=== PATIENT | male | born 1950 | race Caucasian/White ===

== ENCOUNTER 2017-08-23 01:12 | Emergency (ER) | payer OTHER, MEDICARE ==
[~2017-08-23] VITALS: Ht 177.8 cm; Wt 99.8 kg
[~2017-08-23 01:12] MED LIST: AMLODIPINE BESY PO; COREG 25 MG TAB25 MG PO; DIOVAN HCT 25 M1 TA1 PO; ELIQUIS5 MG PO; FISH OIL 1,2001 EAC2 PO; FLOVENT HF0.044 MG/A INH; LEVOTHROID SOD0.1 MG PO; METFORMIN HYD1000 M1 PO; MULTIVITAMIN1 TAB PO; VITAMIN D32000 I1 PO
--- NOTE | 2017-08-23 01:32 | ED DYSPNEA/ASTHMA COMPLAINT ---
History of Present Illness General Chief Complaint: Wheezing/Asthma Stated Complaint: PT C/O DIFF BREATHING HX ASTHMA Source: patient, family, old records Exam Limitations: no limitations Vital Signs & Intake/Output Vital Signs & Intake/Output Vital Signs Date Time Temp Pulse Resp B/P B/P Pulse O2 O2 Flow FiO2 Mean Ox Delivery Rate 08/23 0238 99 08/23 0200 96 Room Air 08/23 0122 97.1 84 16 127/84 96 Allergies Coded Allergies: NO KNOWN ALLERGIES (11/25/10) Reconcile Medications AMLODIPINE/ATORVASTATIN (Amlodipine-Atorvast 5-40 MG) 1 TAB TAB 1 TAB PO DAILY BP/CHOLESTEROL (Reported) Apixaban (Eliquis) 5 MG TAB 1 TAB PO BID BLOOD THINNER (Reported) Carvedilol (Coreg) 25 MG TAB 50 MG PO BID HEART/BP (Reported) CHOLECALCIFEROL (VITAMIN D3) (Vitamin D-3) 2,000 IU SGL 1 SGL PO DAILY SUPPLEMENT (Reported) Fluticasone Propionate (Flovent Hfa) 0.044 MG/Actuation KUNAL 2 PUFF INH BID PRN ASTHMA (Reported) 44 MCG PER PUFF Hydrochlorothiazide/Valsarta (Diovan Hct 25 MG-320 MG) 1 TAB TAB 1 TAB PO DAILY BP (Reported) Levothyroxine Sodium (Levothroid Sodium) 0.1 MG TAB 1 TAB PO DAILY AC THYROID (Reported) METFORMIN HCL (Metformin HCl ER) 1,[address] 1 TAB PO QAM DIABETES (Reported ) METFORMIN HCL (Metformin HCl ER) 1,[address] 0[address]5 TAB PO QPM DIABETES ( Reported) Multivitamin (Multiple Vitamins) 1 TAB TAB 1 TAB PO DAILY SUPPLEMENT ( Reported) Logan-3S/Dha/Epa/Fish Oil (Fish Oil 1,200 MG Softgel) 1 EACH CAPSULE 1 CAP PO DAILY SUPPLEMENT (Reported) Core Measure Meds Pre-Hospital Eliquis Triage Note: TRIAGE: PATIENT TO ER FROM HOME REPORTING SOB TONIGHT, HX ASTHMA. USED INHALER W/O RELIEF, USED NEB TX AT HOME W/O RELIEF "DIDN'T WORK BUT SAW THAT IT WAS ." LUNGS DIMINISHED THROUGHOUT. NO ACUTE DISTRESS, O2:96% RA. Triage Nurses Notes Reviewed? yes Onset: Afternoon Duration: hour(s):, constant, continues in ED Timing: recent history Severity: moderate Activities at Onset: rest Prior Episodes/Possible Cause: occasional episodes Modifying Factors: Improves With: other. Worsens With: movement. Associated Symptoms: wheezing HPI: Several hours prior to admission patient complains of wheezing not relieved with inhaler or nebulizer. He denies fever chills nausea vomiting diarrhea abdominal pain chest pain headache dysuria rash bleeding. Past History Travel History Traveled to [place] past 21 day No Medical History Any Pertinent Medical History? see below for history Neurological: CVA EENT: NONE Cardiovascular: AFIB, hypertension, myocardial infarction, HIGH CHOLESTEROL Respiratory: asthma Gastrointestinal: NONE Hepatic: NONE Renal: NONE Musculoskeletal: NONE Psychiatric: NONE Endocrine: diabetes, hypothyroidism Blood Disorders: NONE Cancer(s): NONE CERTIFIED DENTAL ASSISTANT/Reproductive: NONE Surgical History Surgical History: non-contributory Psychosocial History What is your primary language Turkmen Tobacco Use: Refused to answer Family History Hx Contributory? No Review of Systems Review of Systems Constitutional: Reports: no symptoms. EENTM: Reports: no symptoms. Respiratory: Reports: see HPI, short of breath, wheezing. Cardiovascular: Reports: no symptoms. GI: Reports: no symptoms. Genitourinary: Reports: no symptoms. Musculoskeletal: Reports: no symptoms. Skin: Reports: no symptoms. Neurological/Psychological: Reports: no symptoms. Hematologic/Endocrine: Reports: no symptoms. Immunologic/Allergic: Reports: no symptoms. All Other Systems: Reviewed and Negative Physical Exam Physical Exam General Appearance: well developed/nourished, alert, awake, anxious, moderate distress, obese Head: atraumatic, normal appearance Eyes: Bilateral: normal appearance, PERRL, EOMI. Ears, Nose, Throat: normal pharynx, normal ENT inspection, hearing grossly normal Neck: normal inspection, supple, full range of motion, no midline tenderness Respiratory: chest non-tender, no respiratory distress, quiet respiration, decreased breath sounds Cardiovascular: regular rate/rhythm, normal peripheral pulses, norml femoral pulses equa Peripheral Pulses: 4+ carotid (R), 4+ carotid (L) Gastrointestinal: normal bowel sounds, soft, non-tender, no organomegaly Extremities: normal inspection, normal capillary refill, normal range of motion, no edema Neurologic/Psych: no motor/sensory deficits, awake, alert, oriented x 3, normal gait, normal mood/affect, 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 No CVA/TIA Diagnosis No Sepsis Present: No Sepsis Focused Exam Completed? No Progress Differential Diagnosis: asthma, bronchitis, COPD, pneumonia Plan of Care: Current Medications Sig/Andie Start time Last Medication Dose Stop Time Status Admin Albuterol Sulfate 3 ML ONCE ONE 08/23 144 UNVr (Proventil) 08/23 145 Albuterol Sulfate 3 ML ONCE ONE 08/23 144 UNVr (Proventil) 08/23 145 Ipratropium [place] 2.5 ML ONCE ONE 08/23 144 UNVr (Atrovent) 08/23 145 Prednisone 60 MG ONCE ONE 08/23 144 UNVr 08/23 145 Initial ED EKG: none Departure Departure Time of Disposition: 258 Disposition: HOME OR SELF CARE Condition: Stable Clinical Impression Primary Impression: Asthma with exacerbation Referrals: Earlene PARK,Klaus Ulrich (PCP/Family) Departure Forms: Customer Survey General Discharge Information Prescriptions: Current Visit Scripts Prednisone 1 TAB PO BID #10 TAB Critical Care Note Critical Care Note Critical Care Time: 30-74 min (40)
[2017-08-23] MEDS ORDERED: PREDNISONE20 M1 PO (02:59)
[2017-08-23 03:18] VITALS: BP 136/82
== END 2017-08-23 03:19 ==
LOC: ERH 01:12
DX: J45.901 Unspecified asthma with (acute) exacerbation (principal)
CPT/HCPCS: 1263